=== PATIENT | male | born 1970 | race Caucasian/White ===

== ENCOUNTER 2023-04-01 22:31 | Emergency (ER) | payer BC, SELFPAY ==
[2023-04-01 22:38] VITALS: BP 193/129; PULSE 94; RESP 19; TEMP 36.8; O2SAT 97
--- NOTE | 2023-04-01 22:48 | W.ED.GENAD ---
Discharge Plan Disposition Patient Disposition: Home Condition: Stable Discharge Details Clinical Impression: Laceration of upper lip, complicated Primary Care Provider: Unknown,Unknown ED Provider: Jennie Ramachandran Home Meds and New Rx's Prescriptions: New cephalexin 500 mg tablet 500 mg PO BID 7 Days Qty: 14 0RF Discharge Instructions Instructions: Laceration (ED) Additional Instructions: Please have 4 sutures removed in 5-7 days. Keep clean and dry. May wash under running soap and water after 12 hours. No soaking or swimming. Allow to air dry at least 2 hours a day. Take the antibiotic twice a day with yogurt or a probiotic as directed. You may come back here to have sutures removed, urgent care or your primary care what ever is more convenient for you. Please return sooner if any signs of infection including increased red streaks, drainage, swelling pain or concerns. Any signs of head injury, vomiting, confusion or headache not relieved by Tylenol. Please take Tylenol or Ibuprofen with food every 4-6 hours as needed for pain and swelling. Medical Decision Making 53 year old male presents to the ER after a mechanical fall which occurred [employer] while putting up a tent. Patient states that he tripped fell forward landing on something sustaining approximately 2-1/2 cm full-thickness laceration just below his nares. He does have a small contusion noted to his upper right gum. Teeth are intact. He denies any loss of consciousness. His tetanus vaccination is out of date. 2305: Laceration infiltrated with 0.5% bupivicaine and 1% Lidocaine with Epinephrine. Patient tolerated with difficulty. 2335: Laceration repaired with #4 5.0 ethilon simple interrupted sutures. Wound well approximated. Patient tolerated well. TDAP ordered, Will give Cephalexin 500 mg PO here for possible contaminated wound, patient does not know what he fell onto. Patient discharged with home care strict return instructions and to have sutures removed in 5 to 7 days. This text was generated using [employer]ople[employer]ation system, please disregard any oddities of phrase or misspellings. HPI General Mode of arrival: ambulatory. Date/Time Provider Initiated Documentation: 04/01/23 22:36. Limitations to Documentation: no limitations. Information obtained by: patient, RN notes reviewed and old records reviewed. HPI Narrative: 53 year old male presents to the ER after a mechanical fall which occurred [employer] while putting up a tent. Patient states that he tripped fell forward landing on something sustaining approximately 2-1/2 cm full-thickness laceration just below his nares. He does have a small contusion noted to his upper right gum. Teeth are intact. He denies any loss of consciousness. His tetanus vaccination is out of date. Related Data Home Medications Medication Instructions Recorded Confirmed cephalexin 500 mg tablet 500 mg PO BID 7 days #14 tabs 04/01/23 Previous Rx's Medication Instructions Recorded cephalexin 500 mg tablet 500 mg PO BID 7 days #14 tabs 04/01/23 Allergies Allergy/AdvReac Type Severity Reaction Status Date / Time No Known Allergies Allergy Unverified 04/01/23 22:37 General Stated Complaint: Laceration [place]: 2 Review of Systems Integumentary/Breasts Skin/Breast: Reports wounds (Laceration noted to upper lip just under the nares. Bleeding controlled) [facility] All Active Problems (Updated 04/01/23 @ 23:42 by Jennie Ramachandran NP) Laceration of upper lip, complicated (Acute) Social History Smoking/Tobacco Use Status: Current every day Tobacco Type: smokeless tobacco Smoking risk assessment performed?: Yes Alcohol Intake: current Alcohol Intake frequency: a few times a month Alcohol type: beer Drug use: Never Substance use type: does not use Housing: house Do you feel safe at home: Yes Do you feel safe in your relationship?: Yes Exam [facility] Head images: 1. Approximately 2.5 cm laceration noted to upper lip Nose image: 1. Laceration Throat image: 1. Small area of ecchymosis Course Vital Signs Vital signs: Vital Signs Temperature 36.8 C 04/01/23 22:38 Pulse 94 H 04/01/23 22:38 Respiratory Rate 04/01/23 22:38 Blood Pressure 193/129 H 04/01/23 22:38 Pulse Oximetry 97 04/01/23 22:38 Temperature 36.8 C 04/01/23 22:38 Temperature Source Temporal Artery Scan 04/01/23 22:38 Pulse 94 H 04/01/23 22:38 Respiratory Rate 04/01/23 22:38 Respiratory Effort Normal, Non-Labored 04/01/23 22:41 Blood Pressure 193/129 H 04/01/23 22:38 Blood Pressure Position Sitting 04/01/23 22:38 Pulse Oximetry 97 04/01/23 22:38 Oxygen Delivery Method Room Air 04/01/23 22:38 Oxygen Flow Rate 0 04/01/23 22:38 Pain Level 4 04/01/23 22:38 Procedures Laceration Laceration 1: Site: lip (Upper lip) Size (cm): 2 Description: linear Depth: simple, single layer Local Anesthetic: Lidocaine 1%, Bupivicaine 0.5% and with Epi Amount of anesthesia used (mL): 1 Pre-repair: wound explored, irrigated extensively and deep structures intact Skin layer closed with: nylon Size (cm): 5-0 Number of sutures: 4 Technique: simple, interrupted PAWSS Have you Been Recently Intoxicated or Drunk Within the Last 30 days?: No Have you Ever Experienced Previous Episodes of Alcohol Withdrawal?: No Have you ever Experienced Withdrawal Seizures?: No Have you ever Experienced Delirium Tremens(DT)s?: No Have you ever undergone Alcohol Rehabilitation Treatment (i.e, inpt ot outpatient treatment programs)?: No Have you ever Experienced Blackouts?: No Have you ever Combined Alcohol with other Downers within the last 90 days?: No Have you ever Combined Alcohol with any other Substance of Abuse during the last 90 days?: No Positive Blood Alcohol level on Presentation? [PCS.BAL]: No Evidence of Increased Autonomic Activity (i.e. HR>120, tremor, sweating, agitation, nausea)?: No Result: 0
[2023-04-01] MEDS: Cephalexin 500 MG CAP, 2 CAPS/BTL PO (23:45)
[2023-04-01] MEDS: Cephalexin 500 MG CAP PO (23:45)
[2023-04-01 23:48] VITALS: PULSE 79; RESP 22; TEMP 36.7; O2SAT 97
== END 2023-04-01 23:52 | disposition home or self-care (01) ==
PROVIDERS: Emergency Provider Registered Nurse Emergency
DX: S01.81XA Laceration without foreign body of other part of head, initial encounter (principal); W01.118A Fall on same level from slipping, tripping and stumbling with subsequent striking against other sharp object, initial encounter
CPT/HCPCS: 12011; 90471